=== PATIENT | male | born 1970 | race Hispanic/Latino ===

== ENCOUNTER 2020-04-02 18:46 | Emergency (ER) | payer BC, SELFPAY ==
--- NOTE | ~2020-04-02 | CT_ITS ---
EXAMINATION: CT abdomen pelvis w con DATE: 04/02/2020 21:13 INDICATION: Abdominal pain, nausea, vomiting, diarrhea TECHNIQUE: Computed tomography (CT) of the abdomen and pelvis was performed without intravenous contr ast. Automated exposure control and iterative reconstruction technique were employed. Exam dose: 826 .55 mGy-cm total exam DLP. COMPARISON: None. FINDINGS: There is discoid atelectasis and/or scarring at the lung bases. Normal heart size. No pericardial or pleural effusion. Small sliding hiatal hernia. The liver, gallbladder, bile ducts, pancreas, pancreatic duct, spleen, and adrenal glands and kidneys are unremarkable. No urinary tract calculus or hydroureteronephrosis. Normal caliber of the abdominal aorta. No intraperitoneal or retroperitoneal or pelvic mass lesion or adenopathy or ascites. There are occasional small bowel and colonic air-fluid levels but no evidence of bowel obstruction. N o intraperitoneal free air. Normal appendix. No bowel obstruction, bowel wall thickening, pneumatosis or intraperitoneal free air There is a small fat-containing umbilical hernia. There is a small fat-containing left inguinal hernia. Diffuse idiopathic skeletal hyperostosis of the lower thoracic spine. No suspicious osteolytic or osteoblastic lesions. IMPRESSION: . Occasional small bowel and right colonic fluid levels, suggesting mild enterocolitis Reviewed, dictated and finalized at [facility] Reviewed, dictated and finalized at [facility] IMPRESSION: . Occasional small bowel and right colonic fluid levels, suggestin g mild enterocolitis
[2020-04-02 19:14] VITALS: BP 137/76; PULSE 126; RESP 18; TEMP 36.6
[2020-04-02 19:34] LABS: Basophils Percent Auto 0.2 % (0.2-1.2); Eosinophils Percent Auto 0.2 % (0-4.4); Hematocrit 48.8 % (42.0-52.0); Hemoglobin 16.6 g/dL (14.0-18.0); Immature Granulocyte Absolute 0.03 K/mm3 (0.00-0.031); Immature Granulocyte Percent A 0.3 % (0-0.5); Lymphocytes Absolute Auto 0.75 K/mm3 (0.9-3.2); Lymphocytes Percent Auto 6.7 % (18.3-44.2); Mean Corpuscular Hemoglobin 28.1 pg (26-34); Mean Corpuscular Volume 82.7 fl (80-100); Mean Platelet Volume 9.4 fl (7.4-10.4); Monocytes Absolute Auto 0.4 K/mm3 (0.1-0.6); Monocytes Percent Auto 3.8 % (2.6-8.5); Neutrophils Percent Auto 88.8 % (45.5-73.1); Platelet Count Result 215 k/mm3 (150-375); Red Cell Distribution Width 12.9 % (11.5-14.5); White Blood Count 11.3 K/mm3 (4.5-10.0)
[2020-04-02 19:44] LABS: Alanine Aminotransferase 37 U/L (4-50); Albumin Level 4.5 g/dL (3.5-5.1); Alkaline Phosphatase 137 U/L (38-126); Anion Gap 10 mmol/L (8-16); Aspartate Amino Transferase 36 U/L (17-59); Bilirubin,Total 1.1 mg/dL (0.2-1.3); Blood Urea Nitrogen 15 mg/dL (9-20); Calcium 9.3 mg/dL (8.4-10.2); Carbon Dioxide 24 mmol/L (22-30); Chloride 104 mmol/L (98-107); Estimated CRCL calculation 90 ml/min; Estimated Glomerular Filt Rate > 60; Glucose 118 mg/dL (75-110); Lipase 70 U/L (23-300); Potassium 3.8 mmol/L (3.4-5.0); Sodium 138 mmol/L (137-145)
--- NOTE | 2020-04-02 20:15 | PC.NURSE ---
RN asked Pt. for urine sample. Pt. states I don't want to give a sample. Pt. educated that a urine sample is needed in order to better diagnose Pt. Pt. amb to bathroom w/ RN for urine sample.
[2020-04-02 20:43] VITALS: BP 131/92; PULSE 112; RESP 20; O2SAT 97
[2020-04-02] MEDS: SODIUM CHLORIDE 0.9% IV 1,000 ML 999 ML IV CONT (20:43)
--- NOTE | 2020-04-02 20:50 | ED.NAVMDI ---
HPI - Nausea/Vomiting/Diarrhea General Chief complaint: Nausea/Vomiting/Diarrhea Stated complaint: [id number]-[facility] sent us Time Seen by Provider: 04/02/20 20:38 Source: patient and family Mode of arrival: ambulatory Limitations: no limitations History of Present Illness HPI Narrative: Patient is 50 years old male presents with abdominal pain, nausea, vomiting and diarrhea started 3 hours prior to arrival to the emergency room. Patient denies any history of abdominal surgery. Patient tested negative for COVID-19 prior to arrival to the emergency room at urgent care. Related Data Allergies Allergy/AdvReac Type Severity Reaction Status Date / Time No Known Allergies Allergy Verified 04/02/20 20:40 Review of Systems Review of Systems: Narrative: CONSTITUTIONAL: Denies fever, chills, or sweats. EYES: Denies visual changes, redness, or discharge. ENT: Denies rhinorrhea, congestion, sore throat, or otalgia. CARDIOVASCULAR: Denies chest pain, palpitations, or edema. RESPIRATORY: Denies cough or dyspnea. GASTROINTESTINAL: Denies abdominal pain, nausea, vomiting, or diarrhea. GENITOURINARY: Denies dysuria or hematuria. SKIN: Denies rash or itching. MUSCULOSKELETAL: Denies back pain, joint pain, or myalgia. NEUROLOGIC: Denies headache, numbness, or weakness. PSYCHIATRIC: Denies anxiety or depression. Exam Narrative: Exam Narrative: General appearance: Well-developed, well-nourished Skin: Normal color Head: Normocephalic, nontraumatic Eyes: Clear conjunctiva ENT: Oropharynx normal, ears normal, nose normal Neck: Supple, nontender Chest and respiratory: Airway patent, no respiratory distress, no accessory muscle use Heart: Regular rate/rhythm Abdomen: Soft, diffuse tenderness right abdomen, no guarding or rebound, quiet bowel sounds Vascular: Normal peripheral pulses, normal capillary refill. Musculoskeletal: Normal range of motion, nontender back Neurologic: Alert and oriented ?3, [employer] is normal as tested, no gross motor deficit Course Course Emergency Course: Improving Vital Signs Vital signs: Vital Signs Temperature 36.6 C 04/02/20 19:14 Pulse Rate 126 H 04/02/20 19:14 Respiratory Rate 18 04/02/20 19:14 Blood Pressure 137/76 04/02/20 19:14 Temperature 36.6 C 04/02/20 19:14 Pulse Rate 112 H 04/02/20 20:43 Respiratory Rate 20 04/02/20 20:43 Blood Pressure 131/92 H 04/02/20 20:43 Pulse Oximetry 97 04/02/20 20:43 MDM - Nausea/Vomiting/Diarrhea MDM Narrative Medical decision making narrative: Patient presents with abdominal pain. Labs, UA, CT abdomen pelvis with IV contrast, IV fluid ordered. Further plan to follow Differential Diagnosis Differential diagnosis: Likely gastroenteritis, dehydration and other (Cholecystitis, appendicitis) Lab Data Result diagrams: 04/02/20 19:19 04/02/20 19:19 Labs: Lab Results 04/02/20 04/02/20 Range/Units 19:19 19:19 WBC 11.3 H (4.5-10.0) K/mm3 RBC 5.90 (4.6-6.20) M/mm3 Hgb 16.6 (14.0-18.0) g/dL Hct 48.8 (42.0-52.0) % MCV 82.7 (80-100) fl MCH 28.1 (26-34) pg MCHC 34.0 (32-36) g/dl RDW 12.9 (11.5-14.5) % Plt Count 215 (150-375) k/mm3 MPV 9.4 (7.4-10.4) fl Immature Gran % (Auto) 0.3 (0-0.5) % Neut % (Auto) 88.8 H (45.5-73.1) % Lymph % (Auto) 6.7 L (18.3-44.2) % [place] % (Auto) 3.8 (2.6-8.5) % Eos % (Auto) 0.2 (0-4.4) % Baso % (Auto) 0.2 (0.2-1.2) % Lymph # (Auto) 0.75 L (0.9-3.2) K/mm3 [place] # (Auto) 0.4 (0.1-0.6) K/mm3 Eos # (Auto) 0.0 (0-0.3) K/mm3 Baso # (Auto) 0.0 (0.0-0.1) K/mm3 Abs Immat Gran (auto) 0.03 (0.00-0.031) K/mm3 Absolute Neuts (auto) 10.0
[2020-04-02] MEDS: ONDANSETRON INJ 4 MG/2 ML VIAL IV PUSH (20:59)
[2020-04-02] MEDS: MORPHINE SULFATE (*CRX) 4 MG/ML INJ IV PUSH (21:00)
--- NOTE | 2020-04-02 21:08 | PC.NURSE ---
Pt. attempted for urine sample. Unable to obtain it at this time.
[2020-04-02 22:35] VITALS: BP 133/78; PULSE 88; RESP 19; O2SAT 97
[2020-04-02 22:43] LABS: Add Urine Microscopic? YES; Appearance Urine Clear (Clear); Bilirubin Urine Negative (Negative); Blood Urine Negative (Negative); Color Urine Straw (Yellow); Glucose Urine UA Negative (Negative); Ketones Urine Trace mg/dL (Negative); Leukocyte Esterase Ur Negative LEU/UL (Negative); Nitrate Urine Negative (Negative); Protein Urine Negative (Negative); Squamous Epithelial Cell Urine Occasional /hpf (Few); Urobilinogen Urine Negative mg/dL (<2.0); WBC Urine 0-3 /hpf
[2020-04-02 22:46] LABS: Specific Grav Ur 1.041 (1.001-1.035)
== END 2020-04-02 22:35 | disposition home or self-care (01) ==
PROVIDERS: Emergency Provider Emergency Medicine
DX: K52.9 Noninfective gastroenteritis and colitis, unspecified (principal)
CPT/HCPCS: 36415; 74177; 80053; 81001; 83690; 85025; 96361; 96374; 96375; 99284; J2270; J2405; J7030; Q9967